=== PATIENT | male | born 1970 | race Caucasian/White ===

== ENCOUNTER 2019-03-27 19:14 | Emergency (ER) | payer BC, OTHER ==
[~2019-03-27 19:14] MED LIST: ALBU18HF; CARB100C8; CARB200T
[2019-03-27] MEDS ORDERED: LORazepam 2 MG/ML, 1ML IVPush ONE (20:00)
[2019-03-27] MEDS ORDERED: SODIUM CHLORIDE FLUSH 10ML SYR IVF ONE (20:00)
[2019-03-27] MEDS ORDERED: LORazepam 2 MG/ML, 1ML ONE (20:05)
--- NOTE | 2019-03-27 20:19 | NUR ---
Piv placed-medicated per emar with 1mg ativan ivp seizure precautions PLACED
[2019-03-27 20:29] LABS: MICROSCOPIC NOT IND
[2019-03-27 20:31] LABS: ALANINE AMINOTRANSFERASE 35 U/L (12-78); ALBUMIN 3.7 g/dL (3.4-5.0); ANION GAP 7 mmol/L (5-15); CHLORIDE 98 mmol/L (98-107)
[2019-03-27 20:31] LABS: CULTURE INDICATED? NO
[2019-03-27 20:33] LABS: ALKALINE PHOSPHATASE 106 U/L (45-117); BILIRUBIN,TOTAL 0.3 mg/dL (0.2-1.0); TOTAL PROTEIN 6.9 g/dL (6.4-8.2)
[2019-03-27 20:37] LABS: BASOPHILS # (AUTO) 0.06 x10^3/uL (0-0.1); BASOPHILS % (AUTO) 1 % (0-1); EOSINOPHILS % (AUTO) 2 % (1-7); LYMPHOCYTES # (AUTO) 1.26 x10^3/uL (1-3.4); LYMPHOCYTES % (AUTO) 25 % (22-44); MD NO; MEAN CORPUSCULAR HEMOGLOBIN 32.7 pg (27.5-34.5); MEAN CORPUSCULAR HGB CONC 33.5 g/dL (33.2-36.2); MEAN CORPUSCULAR VOLUME 97.6 fL (81-97); MEAN PLATELET VOLUME 7.7 fL (7.4-10.4); MONOCYTES # (AUTO) 0.52 x10^3/uL (0.2-0.8); MONOCYTES % (AUTO) 10 % (2-9); NEUTROPHILS # (AUTO) 3.11 x10^3/uL (1.8-6.8); NEUTROPHILS % (AUTO) 62 % (42-75); PLATELET COUNT 258 x10^3/uL (130-400); RED BLOOD COUNT 4.18 x10^6/uL (4.38-5.82); RED CELL DISTRIBUTION WIDTH 14.5 % (9.4-14.8)
--- NOTE | 2019-03-27 20:40 | NUR ---
Patient now feel completely normal "i dont feel on edge, i don't feel like my speech is stuttering and i don't feel spastic" Seizure precautions remain in place Provider made aware
[2019-03-27] MEDS ORDERED: sodium PO (21:11)
[2019-03-27 21:13] VITALS: BP 154/94
--- NOTE | 2019-03-27 21:14 | NUR ---
Pt alert and oriented, sitting up on bed. Pt reports aura before seizure this evening. 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 Pt did not fall today. Pt has not seized since being in the ER. Pt in gown and on full monitors. VSS.
--- NOTE | 2019-03-27 21:16 | NUR ---
Pt reports improvement after ativan admin, and reports being tired.
[2019-03-27] MEDS ORDERED: LORazepam 1MG TABLET PO ONE (22:30)
[2019-03-27] MEDS ORDERED: PLEASE ENTER HEIGHT AND WEIGHT MC SCH (22:30)
[2019-03-27] MEDS ORDERED: LORazepam 1MG TABLET ONE (22:45)
--- NOTE | 2019-03-27 22:52 | NUR ---
DISCHARGED DESPITE RECENT NARCOTIC ADMIN PATIENT NOT NAIVE TO NARCOTICS AND IN THE CARE OF EMT FATHER
== END 2019-03-27 23:25 | disposition home or self-care (01) ==
LOC: ED 22:58
DX: G40.309 Generalized idiopathic epilepsy and epileptic syndromes, not intractable, without status epilepticus (principal); E87.1 Hypo-osmolality and hyponatremia
CPT/HCPCS: 36415; 80053; 80156; 81003; 85025; 93005; 96374; 99284; J2060

== ENCOUNTER 2019-10-14 10:22 | Emergency (ER) | payer SELFPAY ==
[~2019-10-14] VITALS: Ht 190.5 cm; Wt 91.0 kg
[~2019-10-14 10:22] MED LIST changes: +sodium PO
--- NOTE | 2019-10-14 11:03 | NUR ---
PT LAYING ON GURNEY AWAKE & CALM, RESPONDS APPROP TO STAFF, NAD & DENIES PAIN, COMFORT MEASURES PROIVDED WHILE AWAITING CT, CALL LIGHT WITHIN REACH, SEIZURE PREC IN PLACE.
--- NOTE | 2019-10-14 11:13 | NUR ---
PT TO CT
[2019-10-14 11:17] LABS: BASOPHILS # (AUTO) 0.03 x10^3/uL (0-0.1); BASOPHILS % (AUTO) 0 % (0-1); EOSINOPHILS # (AUTO) 0.01 x10^3/uL (0-0.4); EOSINOPHILS % (AUTO) 0 % (1-7); LYMPHOCYTES # (AUTO) 0.86 x10^3/uL (1-3.4); LYMPHOCYTES % (AUTO) 7 % (22-44); MD NO; MEAN CORPUSCULAR HEMOGLOBIN 32.3 pg (27.5-34.5); MEAN CORPUSCULAR HGB CONC 33.7 g/dL (33.2-36.2); MEAN PLATELET VOLUME 7.4 fL (7.4-10.4); MONOCYTES # (AUTO) 0.69 x10^3/uL (0.2-0.8); MONOCYTES % (AUTO) 5 % (2-9); NEUTROPHILS % (AUTO) 88 % (42-75); PLATELET COUNT 277 x10^3/uL (130-400); RED BLOOD COUNT 4.82 x10^6/uL (4.38-5.82); RED CELL DISTRIBUTION WIDTH 14.2 % (9.4-14.8)
[2019-10-14 11:25] LABS: ALBUMIN 4.2 g/dL (3.4-5.0); ANION GAP 7 mmol/L (5-15); CALCIUM 8.8 mg/dL (8.5-10.1); CHLORIDE 93 mmol/L (98-107)
[2019-10-14 11:28] LABS: ALANINE AMINOTRANSFERASE 35 U/L (12-78); ALKALINE PHOSPHATASE 137 U/L (45-117); BILIRUBIN,TOTAL 0.5 mg/dL (0.2-1.0); CREATININE 0.74 mg/dL (0.7-1.3); TOTAL PROTEIN 7.8 g/dL (6.4-8.2)
[2019-10-14 11:59] VITALS: BP 138/83
--- NOTE | 2019-10-14 12:00 | NUR ---
ERP AT BEDSIDE AND UPDATING PT ON PLAN OF CARE, RESULTS AND D/C INSTRUCTIONS. PT VERBALIZED UNDERSTANDING. PT SUPINE IN BED, NAD. STATES "NO NEEDS AT THIS TIME". CALL LIGHT WITHIN REACH, SEIZURE AND FALL PRECAUTIONS IN PLACE.
--- NOTE | 2019-10-14 12:27 | NUR ---
TASK RN: Pt verbalizes understanding of chronic low sodium levels and proper nutrition. Patient/Caregiver given discharge instructions and they have confirmed that they understand the instructions. Patient ambulatory with steady gait.
== END 2019-10-14 12:28 | disposition home or self-care (01) ==
LOC: ED 10:31
DX: S09.90XA Unspecified injury of head, initial encounter (principal); R56.9 Unspecified convulsions; R53.1 Weakness; E87.1 Hypo-osmolality and hyponatremia; W19.XXXA Unspecified fall, initial encounter; Y93.89 Activity, other specified; Y92.098 Other place in other non-institutional residence as the place of occurrence of the external cause; Y99.8 Other external cause status
CPT/HCPCS: 36415; 70450; 80053; 85025; 93005; 99285